=== PATIENT | female | born 1960 | race Caucasian/White ===

== ENCOUNTER 2016-08-07 12:13 | Observation (INO) | payer SELFPAY ==
[~2016-08-07] VITALS: Ht 162.6 cm; Wt 66.0 kg
[~2016-08-07 12:13] MED LIST: AMINO ACID1 EACH PO; TRAZODONE HCL150 MG PO; VITAMIN B 100 PO
[2016-08-07 18:15] VITALS: BP 135/67
[2016-08-07 21:44] VITALS: BP 112/57
[2016-08-08 01:30] VITALS: BP 131/71
[2016-08-08 06:01] VITALS: BP 143/70
[2016-08-08 08:45] VITALS: BP 132/63
[2016-08-08 11:20] VITALS: BP 120/59
== END 2016-08-08 15:10 | disposition home or self-care (01) ==
LOC: CATH 12:13 → 4EAST 18:08
DX: I44.2 Atrioventricular block, complete (principal); R55 Syncope and collapse
CPT/HCPCS: 71010; 93005; C1785; C1892; C1894; C1898; G0378; J0690; J1200; J2250; J3010; S0020